=== PATIENT | male | born 1980 | race Caucasian/White ===

== ENCOUNTER → 2021-08-18 09:31 | Outpatient (CLI) | payer OTHER, SELFPAY ==
[2021-08-18 14:27] LABS: COVID19 -Nasal RAPID POSITIVE (Negative)
== END ==
PROVIDERS: Visit Provider Family Medicine Sleep Medicine
DX: U07.1 COVID-19 (principal); Z20.822 Contact with and (suspected) exposure to COVID-19
CPT/HCPCS: 87635; C9803

== ENCOUNTER → 2021-10-12 13:55 | Outpatient (ROUT) | payer OTHER, SELFPAY ==
[2021-10-12 17:29] LABS: COVID-19 CEPHEID PCR (VTM/NP) Negative (Negative)
== END ==
PROVIDERS: PCP Student in an Organized Health Care Education/Training Program; Visit Provider Otolaryngology
DX: J30.1 Allergic rhinitis due to pollen (principal); J30.89 Other allergic rhinitis; J34.89 Other specified disorders of nose and nasal sinuses; R09.82 Postnasal drip; J34.2 Deviated nasal septum; G47.31 Primary central sleep apnea
CPT/HCPCS: U0003; U0005

== ENCOUNTER 2021-10-14 10:40 | Day surgery (SDC) | payer OTHER, SELFPAY ==
[2021-10-14] VITALS (7 sets, daily range): BP systolic 116–143; BP diastolic 74–90; PULSE 83–108; RESP 15–20; TEMP 36–36.8; O2SAT 94–99; BMI 34.0
--- NOTE | 2021-10-14 10:51 | PM.PREOP ---
Pre-operative Note Interval Note History & Physical reviewed/Exam performed by Physician: Yes Changes to H&P: No
--- NOTE | 2021-10-14 10:51 | PM.HP.1 ---
History of Present Illness History of Present Illness Date Patient Seen: 10/14/21 Time Patient Seen: 10:51 Chief complaint: SDC Narrative: 41-year-old male last seen in clinic 08/17/2021, prior notes reviewed, presents for septoplasty, turbinate reduction and possible internal nasal valve release. Continues his BiPAP for central apnea, required cancelling surgery on 08/19 due to COVID positive. Feels back to baseline, no recent cough cold or fever, wishes to proceed. Review of Systems Review of Systems Narrative: Negative except as listed in the HPI Exam Narrative Exam Narrative: Well-developed well-nourished male in no acute distress. Heart regular rate and rhythm without murmur, lungs clear to auscultation bilaterally Assessment & Plan Assessment & Plan narrative: Assessment: Nasal airway obstruction, septal deviation, inferior turbinate hypertrophy, internal nasal valve restriction Plan: Following discussion of the material risks benefits complications and alternatives, the patient elected to proceed with the above surgery as outpatient. Time Spent With Patient Critical Care time: I spent a total of [] minutes of critical care time on this patient's care today; this time is exclusive of procedural time.
--- NOTE | 2021-10-14 10:53 | P.OP_ITS ---
Operative Date/Time/Diagnoses Date of procedure: 10/14/21 Time of procedure: 14:42 Pre-op diagnosis: Nasal airway obstruction, inferior turbinate hypertrophy, internal nasal valve restriction Post-op diagnosis: same Procedure & Clinicians Procedure: 1. Septoplasty 2. Bilateral inferior turbinate reduction via intramural cautery 3. RIGHT internal nasal valve release Same procedure as scheduled: Yes Indications: 41-year-old male with the above diagnoses incompletely managed with medical therapy presents for the above procedures. Following discussion of the material risks benefits complications and alternatives, he elected to proceed. Surgeon: Daniel Vidal Click Yes if Unassisted: Yes Anesthesia Type: General and Local Operative Notes Findings: 2 to 3+ right caudal deviation, 2+ right mid septal deviation, right greater than left internal nasal valve restriction, LEFT INV patent after septoplasty, no intervention necessary. Estimated Blood Loss (mL): 50 Procedure in detail: Following identification and confirmation of consent as well as preoperative Afrin nasal spray, the patient was brought to the operating room suite and placed in the supine position. General endotracheal anesthesia was administered. I infiltrated the septum widely bilaterally with 1% lidocaine 1 100,000 epinephrine followed by temporary packing with cotton with Afrin and 4% lidocaine. Following sterile prep and drape, the packing was removed and I performed a right shena-transfixion incision, elevated the right mucoperichondrial and mucoperiosteal flap. I disarticulated near the bony/cartilaginous junction and elevated the left mucoperiosteal flap. Deviated portions of the perpendicular plate of the ethmoid and vomer were resected. The residual quadrilateral cartilage was further straightened by trimming it inferiorly as well as reducing the maxillary crest. A 2 mm strip of cartilage paralleling the residual 1 cm dorsal and caudal strut was resected to further straighten the quadrilateral cartilage. The hemitransfixion incision was closed with interrupted 5 0 chromic followed by a running 4 0 plain gut mattress suture to reapproximate the septal flaps. At case completion, 20/1000th of an inch silastic splints were placed bilaterally, sutured anteriorly with a single 4 0 nylon. The head of each inferior turbinate had been previously infiltrated with additional local anesthetic and a 25 gauge spinal needle was used to impale the length of the turbinate, with cautery on a setting of 15 activated on slow wi thdrawal. The turbinates were then outfractured. The scroll regions had been previously infiltrated with local anesthetic and a 15 blade incised the RIGHT caudal border of the upper lateral cartilage. I elevated the mucosa off the posterior surface and 2 mm of cartilage was resected with forceps. The mucosa was reapproximated with interrupted 5 0 chromic, effectively increasing the area of the internal nasal valve. The LEFT INV was patent and did not require intervention. The procedure completed, sponge and needle counts were correct and the patient was extubated in the operating room and taken to recovery room in stable condition without known complication. Complications: none Post-operative Condition: stable Disposition: same day surgery Plan for aftercare: Nasal saline every hour while awake, begin irrigations t.i.d. tomorrow if evelin ired. Polysporin to the nostrils at all times, Tylenol alternating with Advil for pain control, oxycodone for breakthrough pain. Elevate head of bed, no nose blowing, no straining for 2 weeks. Ice directly under the nose on the upper lip has tolerated 24-48 hours at a minimum. Follow-up in 1 week for nasal splint removal.
[2021-10-14] MEDS: OXYMETAZOLINE NASAL SPRAY 15 ML 2 SPRAYS NASAL (11:21)
[2021-10-14] MEDS: LACTATED RINGERS 1,000 ML 84 ML IV (11:27)
--- NOTE | 2021-10-14 13:48 | SUR.OPER ---
Supine on padded OR bed, head on pillow, arms padded and tucked at sides, legs uncrossed, safety belt at thigh, tape over blanket over lower legs .
[2021-10-14] MEDS: LIDOCAINE 4% SOLN 50 ML 20 ML TOP (14:53)
[2021-10-14] MEDS: LIDOCAINE 1% W/EPI 20 ML INJ (14:54)
== END 2021-10-14 16:00 | disposition home or self-care (01) ==
PROVIDERS: PCP Student in an Organized Health Care Education/Training Program; Referring Provider Otolaryngology; Visit Provider Otolaryngology
PROC: (CPT 30520; principal; 2021-10-14 12:15)
DX: J34.2 Deviated nasal septum (principal); J34.89 Other specified disorders of nose and nasal sinuses; J34.3 Hypertrophy of nasal turbinates
CPT/HCPCS: 30520; 30802; A9270; J3010